=== PATIENT | male | born 1965 | race Caucasian/White ===

== ENCOUNTER 2017-12-07 07:12 | Inpatient (IN) | payer MEDICARE, BC ==
[~2017-12-07] VITALS: Ht 175.3 cm; Wt 63.0 kg
[2017-12-07] VITALS (8 sets, daily range): BP systolic 11–127; BP diastolic 46–76; PULSE 59–64; TEMP 97.3–98.1
[~2017-12-07 07:12] MED LIST: CEPHALEXIN500 M1 PO; COUMADIN 5MG5 MG/TAB PO; COUMADIN 77.5 MG/TAB PO; FOLIC ACID 11 MG/TA1 PO; KLOR-CON 1010 MEQ PO; LASIX 40MG TABL40 MG PO; NORCO 325 MG-51 TAB PO; PRINIVIL10 MG PO; TOPROL XL100 MG PO; ZOVIRAX400 MG PO
[2017-12-07 08:21] LABS: HEMATOCRIT 38.8 % (42.0-52.0); HEMOGLOBIN 12.7 g/dl (13.5-18.0); MEAN CELL VOLUME 91 fl (80.0-100.0); MEAN CORPUSCULAR HEMOGLOBIN 30 pg (27.0-31.0); MEAN CORPUSCULAR HGB CONC 33 g/dl (33.0-37.0); MEAN PLATELET VOLUME 13.6 fl (7.4-10.4); PLATELET COUNT 163 K/mm3 (130-400); RED BLOOD COUNT 4.26 M/mm3 (4.20-5.60); REDCELL DISTRIBUTION WIDTH-CV 14.5 % (11.5-14.5)
[2017-12-07 08:31] LABS: CALCIUM 8.9 mg/dL (8.4-10.2); CREATININE, serum 0.66 mg/dL (0.66-1.25); POTASSIUM 4.6 mmol/L (3.4-5.0)
[2017-12-07] MEDS ORDERED: COUMADIN 5MG5 MG/TAB PO (08:45)
[2017-12-07] MEDS ORDERED: COUMADIN 77.5 MG/TAB PO (08:46)
[2017-12-07] MEDS ORDERED: LASIX 20MG TABL20 MG PO (08:49)
[2017-12-07 08:50] LABS: INR 1.2 (0.8-3.0); PROTHROMBIN TIME 13.5 SECONDS (9.7-12.8)
[2017-12-07] MEDS ORDERED: ZOVIRAX400 MG PO (09:12)
[2017-12-08 01:17] VITALS: BP 108/59; PULSE 62; TEMP 98
[2017-12-08 07:53] VITALS: BP 119/51; PULSE 59; TEMP 98.3
[2017-12-08 11:09] LABS: CALCIUM 8.5 mg/dL (8.4-10.2); CREATININE, serum 0.68 mg/dL (0.66-1.25); MAGNESIUM 1.7 mg/dL (1.6-2.3); POTASSIUM 3.7 mmol/L (3.4-5.0)
[2017-12-08 11:27] LABS: INR 1.2 (0.8-3.0); PROTHROMBIN TIME 13.2 SECONDS (9.7-12.8)
[2017-12-08 15:10] VITALS: BP 98/47; PULSE 64; TEMP 98.7
[2017-12-08 19:49] VITALS: BP 121/48; PULSE 67; TEMP 99.4
[2017-12-09 00:32] VITALS: BP 119/61; PULSE 58; TEMP 97.9
[2017-12-09 07:28] LABS: BASO % 0.6 % (0.0-2.0); EOS # 0.2 (0.0-0.7); EOS % 3.4 % (0-4.0); GRAN # 3.5 (1.4-6.5); GRAN % 65.5 % (42.2-75.2); LYMPH # 0.9 (1.2-3.4); LYMPH % 16.3 % (20.0-51.0); MEAN CELL VOLUME 90 fl (80.0-100.0); MEAN CORPUSCULAR HGB CONC 34 g/dl (33.0-37.0); MEAN PLATELET VOLUME 14.5 fl (7.4-10.4); MONO # 0.7 (0.1-0.6); MONO % 13.6 % (1.7-9.3); PLATELET COUNT 99 K/mm3 (130-400); RED BLOOD COUNT 3.06 M/mm3 (4.20-5.60); REDCELL DISTRIBUTION WIDTH-CV 14.4 % (11.5-14.5)
[2017-12-09 07:35] LABS: INR 1.5 (0.8-3.0); PROTHROMBIN TIME 17.1 SECONDS (9.7-12.8)
[2017-12-09 07:37] LABS: HEMATOCRIT 27.4 % (42.0-52.0); HEMOGLOBIN 9.2 g/dl (13.5-18.0); MEAN CORPUSCULAR HEMOGLOBIN 30 pg (27.0-31.0)
[2017-12-09 07:39] VITALS: BP 109/61; PULSE 61; TEMP 98.3
[2017-12-09 07:44] LABS: CREATININE, serum 0.57 mg/dL (0.66-1.25); MAGNESIUM 1.7 mg/dL (1.6-2.3); POTASSIUM 3.8 mmol/L (3.4-5.0)
[2017-12-09 11:14] VITALS: BP 102/64; PULSE 83; TEMP 98.6
[2017-12-09 16:30] VITALS: BP 104/54; PULSE 71; TEMP 99.1
[2017-12-09 20:00] VITALS: BP 102/53; PULSE 83; TEMP 99.4
[2017-12-10 07:33] VITALS: BP 110/63; BP 138/86; PULSE 81; PULSE 82; TEMP 97.8; TEMP 97.9
[2017-12-10 07:58] LABS: BASO % 0.7 % (0.0-2.0); EOS # 0.2 (0.0-0.7); EOS % 3.6 % (0-4.0); GRAN # 3.9 (1.4-6.5); GRAN % 66.3 % (42.2-75.2); LYMPH % 16.4 % (20.0-51.0); MEAN CELL VOLUME 92 fl (80.0-100.0); MEAN CORPUSCULAR HEMOGLOBIN 30 pg (27.0-31.0); MEAN CORPUSCULAR HGB CONC 33 g/dl (33.0-37.0); MEAN PLATELET VOLUME 13.2 fl (7.4-10.4); MONO # 0.7 (0.1-0.6); MONO % 12.5 % (1.7-9.3); PLATELET COUNT 138 K/mm3 (130-400); RED BLOOD COUNT 3.34 M/mm3 (4.20-5.60); REDCELL DISTRIBUTION WIDTH-CV 14.3 % (11.5-14.5)
[2017-12-10 08:00] LABS: HEMATOCRIT 30.7 % (42.0-52.0)
[2017-12-10 08:04] LABS: INR 1.5 (0.8-3.0); PROTHROMBIN TIME 16.5 SECONDS (9.7-12.8)
[2017-12-10 08:18] LABS: CALCIUM 8.7 mg/dL (8.4-10.2); CREATININE, serum 0.6 mg/dL (0.66-1.25); MAGNESIUM 1.7 mg/dL (1.6-2.3); POTASSIUM 4.2 mmol/L (3.4-5.0)
[2017-12-10 12:05] VITALS: BP 102/56; PULSE 74; TEMP 98.7
[2017-12-10] MEDS ORDERED: ZOVIRAX800 MG PO (12:55)
[2017-12-10] MEDS ORDERED: BETAPACE 120MG120 MG PO (12:56)
[2017-12-10 13:12] LABS: ALANINE AMINOTRANSFERASE 80 U/L (21-72); AST,SGOT 61 U/L (15-37)
== END 2017-12-10 17:20 | disposition home or self-care (01) | DRG 265 ==
LOC: COL.CAR 07:12 → MEDICAL 11:56 → COL.CAR 12:00 → MEDICAL 12:01
PROVIDERS: Internal Medicine Cardiovascular Disease; Nurse Practitioner
PROC: 02HK3KZ Insertion of Defibrillator Lead into Right Ventricle, Percutaneous Approach (ICD-10-PCS; principal; 2017-12-07)
PROC: 02PA0MZ Removal of Cardiac Lead from Heart, Open Approach (ICD-10-PCS; 2017-12-07)
PROC: B5161ZA Fluoroscopy of Right Subclavian Vein using Low Osmolar Contrast, Guidance (ICD-10-PCS; 2017-12-07)
DX: T82.110A Breakdown (mechanical) of cardiac electrode, initial encounter (principal); I47.2 Ventricular tachycardia; I48.0 Paroxysmal atrial fibrillation; Z79.01 Long term (current) use of anticoagulants; Z95.2 Presence of prosthetic heart valve
CPT/HCPCS: C1769; C1894; C1898; J0690; J1650; J2250; J2405; J3010; J7030; Q9967

== ENCOUNTER 2021-06-04 08:12 | Day surgery (SDC) | payer MEDICARE, BC ==
[~2021-06-04] VITALS: Ht 177.8 cm; Wt 65.0 kg
[2021-06-04] VITALS (12 sets, daily range): BP systolic 95–118; BP diastolic 50–70; PULSE 53–89; TEMP 97.8–98.4
[~2021-06-04 08:12] MED LIST changes: +BETAPACE 120MG120 MG PO; +LASIX 20MG TABL20 MG PO; +ZOVIRAX800 MG PO
[2021-06-04] MEDS ORDERED: ZOVIRAX800 MG PO (09:14)
--- NOTE | 2021-06-04 09:14 | NUR ---
Initial visit; Patient thanked Machine Turner for offering prayer and God's blessings prior to his surgical procedure with Dr. Najera. Patient also thanked Machine Turner for offering encouragement and comfort.
[2021-06-04] MEDS ORDERED: BETAPACE 120MG120 MG PO (09:17)
[2021-06-04 09:40] LABS: HEMATOCRIT 39.4 % (42.0-52.0); MEAN CELL VOLUME 90 fl (80.0-100.0); MEAN CORPUSCULAR HEMOGLOBIN 30 pg (27-31); MEAN CORPUSCULAR HGB CONC 33 g/dl (33.0-37.0); PLATELET COUNT 145 K/mm3 (130-400); RED BLOOD COUNT 4.37 M/mm3 (4.20-5.60); REDCELL DISTRIBUTION WIDTH-CV 14.6 % (11.5-14.5)
[2021-06-04 09:44] LABS: INR 1.4 (0.8-3.0)
[2021-06-04 09:58] LABS: CALCIUM 9.2 mg/dL (8.4-10.2); CREATININE, serum 0.82 mg/dL (0.72-1.25); POTASSIUM 4.2 mmol/L (3.5-4.5)
--- NOTE | 2021-06-04 11:09 | NUR ---
PATIENT ALERT AND ORIENTED, NO REPORTS OF PAIN OR DISCOMFORT. FAMILY WAS AT BEDSIDE-WILL REMAIN OUTSIDE IN VEHICLE BUT WOULD LIKE TO BE UPDATED-WILL HAVE UPDATE. CONSENT SIGNED AND VERIFIED. PLEASE SEE MERGE FOR SPECIFIC DETAILS ABOUT PROCEDURE WELL HEMODYNAMIC MONITORING AND MEDICATION ADMINISTRATION.
--- NOTE | 2021-06-04 15:40 | NUR ---
Pt transferred to room 18,report to primary nurse.
--- NOTE | 2021-06-04 16:41 | NUR ---
Patient came from express unit after pacemaker lead replacement. Patient A&Ox4, independent, and denies any concerns. Left arm remains in sling. Dressing is CDI. IV in left forearm works properly. Patient on telemetry.
--- NOTE | 2021-06-05 02:18 | NUR ---
DR NIXON NOTIFIED OF PT PACER SPIKE NOT CAPTURING, HITTING AFTER BEAT OF T WAVE AND OCCASIONALY IN QRS STARTING ABOUT 01AM. PT DENIES CHEST PAIN OR ANY SYMPTOMS. LEADS AND PATCHES CHANGED. DR NIXON STATES LEAVE HIM NPO FOR NOW AND WILL CHECK IN THE AM. PT UPDATED ON POC AND V/U.
--- NOTE | 2021-06-05 03:19 | NUR ---
AT SHIFT CHANGE PT ASKED THIS RN TO PUT A SIGN ON HIS DOOR SO HE CAN GET SLEEP TONIGHT. NOTE- REFUSED 00 AND 04 VITALS, LABS. DID NOT WANT TO BE DISTURBED.
[2021-06-05 06:52] LABS: BASO % 0.5 % (0.0-2.0); EOS # 0.2 K/mm3 (0.0-0.7); EOS % 3.2 % (0.0-4.0); GRAN # 4.1 K/mm3 (1.4-6.5); GRAN % 72.9 % (42.2-75.2); LYMPH # 0.6 K/mm3 (1.2-3.4); LYMPH % 9.8 % (20.0-51.0); MEAN CELL VOLUME 91 fl (80.0-100.0); MEAN CORPUSCULAR HGB CONC 32 g/dl (33.0-37.0); MONO # 0.7 K/mm3 (0.1-0.6); MONO % 13.2 % (1.7-9.3); PLATELET COUNT 103 K/mm3 (130-400); RED BLOOD COUNT 3.43 M/mm3 (4.20-5.60); REDCELL DISTRIBUTION WIDTH-CV 14.8 % (11.5-14.5)
[2021-06-05 06:59] LABS: INR 1.3 (0.8-3.0); PROTHROMBIN TIME 14.4 SECONDS (9.7-12.8)
[2021-06-05 07:09] LABS: CALCIUM 8.1 mg/dL (8.4-10.2); CREATININE, serum 0.83 mg/dL (0.72-1.25); POTASSIUM 3.8 mmol/L (3.5-4.5)
[2021-06-05 07:13] LABS: HEMATOCRIT 31.3 % (42.0-52.0); MEAN CORPUSCULAR HEMOGLOBIN 29 pg (27-31)
[2021-06-05 07:15] LABS: HEMOGLOBIN 10.1 g/dl (13.5-18.0)
--- NOTE | 2021-06-05 08:45 | NUR ---
Assessment complete. Pt is up walking in room. Very anxious about discharge. Dressing to L upper chest CDI. INT to L forearm flushes well, no s/s infiltration. Pt denies needs at this time. Call light within reach.
[2021-06-05 08:53] VITALS: BP 131/60; PULSE 69; TEMP 97.9
[2021-06-05] MEDS ORDERED: CEPHALEXIN500 M1 PO (11:02)
[2021-06-05] MEDS ORDERED: BETAPACE 80MG80 MG PO (11:02)
--- NOTE | 2021-06-05 11:28 | NUR ---
SALMA met with the patient to discuss discharge plan. The patient lives alone in [place]. He reports independence with ADLs and does not have any DME. The patient's PCP is Dr. Ignacio Walsh and he receives his medications from [facility] in [facility]. He reports no difficulties obtaining his meds. The patient does not have a DPOA-HC, but he was interested in obtaining a form. SALMA provided. The patient states that he already knows who he would want to designate. He wants to designate his girlfriend, Hailey Ontiveros (ph#[phone]). His mother, Leonie (ph#[phone]), is also listed as one of his contacts. The patient plans on returning home upon discharge today. No additional needs at this time.
[2021-06-05 11:59] VITALS: BP 105/56; PULSE 73; TEMP 97.8
--- NOTE | 2021-06-05 13:00 | NUR ---
Discharge instructions reviewed with pt. Medication changes reviewed with patient. Questions invited and answered. Pt verbalized understanding of all discharge instructions.
--- NOTE | 2021-06-05 13:15 | NUR ---
Pt escorted to private vehicle by this RN
== END 2021-06-05 13:15 | disposition home or self-care (01) ==
LOC: COL.CAR 08:12 → MEDICAL 15:40 → COL.CAR 06-05 13:15
PROVIDERS: Internal Medicine Cardiovascular Disease
DX: T82.191A Other mechanical complication of cardiac pulse generator (battery), initial encounter (principal); I48.0 Paroxysmal atrial fibrillation; I48.92 Unspecified atrial flutter
CPT/HCPCS: OP; C1721; C1769; C1887; C1894; C1898; J0690; J1200; J1650; J2250; J2405; J3010; J7030; Q9967